=== PATIENT | female | born 2000 | race Caucasian/White ===

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

== ENCOUNTER 2019-04-09 14:05 | Emergency (ER) | payer SELFPAY ==
[2019-04-09 14:21] VITALS: BP 116/73; PULSE 95
--- NOTE | 2019-04-09 14:21 | EDM.PDOC ---
ED HPI GENERAL MEDICAL PROBLEM - General Chief Complaint: Genitourinary Problem Stated Complaint: INFECTION Time Seen by Provider: 04/09/19 14:17 Source of Information: Reports: Patient History Limitations: Reports: No Limitations - History of Present Illness INITIAL COMMENTS - FREE TEXT/NARRATIVE: History of present illness: []Patient started having right-sided flank pain in her urine yesterday. Today she has pain and both flanks as well as frequency but no dysuria. She denies any fevers, chills, nausea or vomiting and is unsure if she is . Review of systems: As per history of present illness and below otherwise all systems reviewed and negative. Past medical history: As per history of present illness and as reviewed below otherwise noncontributory. Surgical history: As per history of present illness and as reviewed below otherwise noncontributory. Social history: No reported history of drug or alcohol abuse. Family history: As per history of present illness and as reviewed below otherwise noncontributory. Physical exam: General: Well developed, well nourished in NAD HEENT: Atraumatic, normocephalic, pupils reactive, negative for conjunctival pallor or scleral icterus, mucous membranes moist, throat clear, neck supple, nontender, trachea midline. Lungs: Clear to auscultation, breath sounds equal bilaterally, chest nontender. Heart: S1S2, regular, negative for clicks, rubs, or JVD. Abdomen: NABS, Soft, nondistended, nontender, no rebound or guarding. Negative for masses or hepatosplenomegaly. Negative for costovertebral tenderness. Pelvis: Stable nontender. Genitourinary: Deferred. Rectal: Deferred. Extremities: Atraumatic, negative for cords or calf pain. Neurovascular unremarkable. Neuro: Awake, alert, oriented. Cranial nerves II through XII unremarkable. Cerebellum unremarkable. Motor and sensory unremarkable throughout. Exam nonfocal. Skin:warm and dry Diagnostics: UA, urine hCG Therapeutics: Patient declined pain meds ED Course: stable Impression: uti Prescriptions: bactrim ds Plan: Take meds as directed, follow up with your primary care physician, return to ER if symptoms worsen or change. Definitive disposition and diagnosis as appropriate pending reevaluation and review of above. Pelvic Pain Score (Numeric/FACES): 3 - Related Data Allergies Allergy/AdvReac Type Severity Reaction Status Date / Time No Known Allergies Allergy Verified 04/09/19 14:18 Home Meds: Home Meds Sulfamethoxazole/Trimethoprim [Bactrim Ds Tablet] 1 each PO BID #14 tablet 04/09 [Rx] Past Medical History - Past Health History Medical/Surgical History: Denies Medical/Surgical History Gastrointestinal History: Reports: Celiac Disease - Infectious Disease History Infectious Disease History: Reports: None Social & Family History - Family History Family Medical History: Noncontributory - Caffeine Use Caffeine Use: Reports: Coffee ED ROS GENERAL - Review of Systems Review Of Systems: See Below ED EXAM, RENAL/ - Physical Exam Exam: See Below Course - Vital Signs Last Recorded V/S: Last Vital Signs Temp 98.5 F 04/09/19 14:18 Pulse 95 04/09/19 14:18 Resp 16 04/09/19 14:18 BP 116/73 04/09/19 14:18 Pulse Ox 96 04/09/19 14:18 - Orders/Labs/Meds Labs: Laboratory Tests 04/09/19 04/09/19 Range/Units 14:23 14:23 Urine Color YELLOW Urine Appearance CLEAR Urine pH 5.5 (5.0-8.0) Ur Specific [place] >= 1.030 (1.001-1.035) Urine Protein NEGATIVE (NEGATIVE) mg/dL Urine Glucose (UA) NEGATIVE (NEGATIVE) mg/dL Urine Ketones NEGATIVE (NEGATIVE) mg/dL Urine Occult Blood SMALL H (NEGATIVE) Urine Nitrite NEGATIVE (NEGATIVE) Urine Bilirubin NEGATIVE (NEGATIVE) Urine Urobilinogen 1.0 (<2.0) EU/dL Ur Leukocyte Esterase NEGATIVE (NEGATIVE) Urine RBC 3-5 (0-2/HPF) Urine WBC 3-5 (0-5/HPF) Ur Epithelial Cells FEW (NONE-FEW) Urine Bacteria FEW (NEGATIVE) Urine HCG, Qual NEGATIVE (NEGATIVE) Departure - Departure Time of Disposition: 14:48 Disposition: Home, Self-Care 01 Condition: Good Clinical Impression: UTI (urinary tract infection) Qualifiers: Urinary tract infection type: site unspecified Hematuria presence: with hematuria Qualified Code(s): N39.0 - Urinary tract infection, site not specified - Discharge Information *PRESCRIPTION DRUG MONITORING PROGRAM REVIEWED*: Not Applicable *COPY OF PRESCRIPTION DRUG MONITORING REPORT IN PATIENT MOHIT: Not Applicable Prescriptions: Sulfamethoxazole/Trimethoprim [Bactrim Ds Tablet] 1 each PO BID #14 tablet Referrals: Alicia Kent NP [Primary Care Provider] - Forms: ED Department Discharge Additional Instructions: The following information is given to patients seen in the emergency department who are being discharged to home. This information is to outline your options for follow-up care. We provide all patients seen in our emergency department with a follow-up referral. The need for follow-up, as well as the timing and circumstances, are variable depending upon the specifics of your emergency department visit. If you don't have a primary care physician on staff, we will provide you with a referral. We always advise you to contact your personal physician following an emergency department visit to inform them of the circumstance of the visit and for follow-up with them and/or the need for any referrals to a consulting specialist. The emergency department will also refer you to a specialist when appropriate. This referral assures that you have the opportunity for follow-up care with a specialist. All of these measure are taken in an effort to provide you with optimal care, which includes your follow-up. Under all circumstances we always encourage you to contact your private physician who remains a resource for coordinating your care. When calling for follow-up care, please make the office aware that this follow-up is from your recent emergency room visit. If for any reason you are refused follow-up, please contact the [facility] Emergency Department at and asked to speak to the emergency department charge nurse. Take meds as directed, follow up with your primary care physician, return to ER if symptoms worsen or change. [facility] [address] [place] [id number]
== END 2019-04-09 14:58 | disposition home or self-care (01) ==
LOC: MW.ED 14:05
DX: N39.0 Urinary tract infection, site not specified (principal); R31.9 Hematuria, unspecified
CPT/HCPCS: 81001; 81025; 99284

== ENCOUNTER 2019-12-12 17:43 | Emergency (ER) | payer OTHER ==
[2019-12-12] MEDS ORDERED: Morphine 15 MG Tab PO ONE (18:13)
[2019-12-12] MEDS ORDERED: Ibuprofen 600 MG Tab PO ONE (18:13)
[2019-12-12] MEDS ORDERED: Acetaminophen 325 MG Tab PO ONE (18:13)
--- NOTE | 2019-12-12 18:17 | EDM.PDOC ---
<Will Edgar - Last Filed: 12/12/19 18:15> ED HPI GENERAL MEDICAL PROBLEM - General Chief Complaint: Lower Extremity Injury/Pain Stated Complaint: POSSIBLE BROKEN TOE Time Seen by Provider: 12/12/19 18:07 Source of Information: Reports: Patient - History of Present Illness INITIAL COMMENTS - FREE TEXT/NARRATIVE: HISTORY AND PHYSICAL: History of present illness: This 19-year-old female with no significant past medical history, has tobacco dependence, and is otherwise healthy he was running away from her parent playing, and then accidentally kicked an object with her right foot. This caused immediate pain and a feeling of a crunch. This resulted in her not being able to ambulate without extreme difficulty and severe pain. She reports emergency department for evaluation for possible fracture. Denies other associated signs or symptoms. No other modifying, aggravating or alleviating factors. Review of systems: A 10-point review of systems, other than pertinent positives and negatives as stated per HPI, is otherwise negative. Past medical history: As per history of present illness and as reviewed below otherwise noncontributory. Surgical history: As per history of present illness and as reviewed below otherwise noncontributory. Social history: No reported history of drug or alcohol abuse. Family history: As per history of present illness and as reviewed below otherwise noncontributory. Physical exam: VITAL SIGNS: Reviewed. GENERAL: Appears to be in acute pain HEAD: No signs of head trauma. EYES: Pupils are equal. Extraocular motions intact. EARS: Hearing grossly intact. MOUTH: Oropharynx is normal. NECK: No adenopathy, no JVD. CHEST: Chest with clear breath sounds bilaterally. No wheezes, rales, or rhonchi. CARDIAC: Regular rate and rhythm. Normal S1 and S2, without murmurs, gallops, or rubs. VASCULAR: Peripheral pulses normal and equal in all extremities. ABDOMEN: Soft, without detectable tenderness. No sign of distention. No rebound or guarding, and no masses palpated. MUSCULOSKELETAL: The right MTP joints are swollen at the second third and fourth junctions. Distal neurovascular function is intact. No open wounds. No pain in the ankle, tib-fib, or proximal fibula. No knee pain. No ligamental laxity. NEUROLOGIC EXAM: Alert and oriented x 3. No focal sensory or motor deficits. Speech normal. Follows commands. PSYCHIATRIC: Mood normal. SKIN: No rash or lesions. Initial Differential Diagnosis & Plan: Extremity trauma: Differential diagnosis includes fracture, dislocation, strain, contusion, tendon or ligamentous injury, compartment syndrome, neurovascular injury, muscle rupture. Doubt compartment syndrome as the compartments are soft. Some swelling and tenderness at the MTP joints. Distal neurovascular function is intact. Oral pain control Plain film radiographs Definitive disposition and diagnosis as appropriate pending reevaluation and review of above. right foot Pain Score (Numeric/FACES): 8 - Related Data Allergies Allergy/AdvReac Type Severity Reaction Status Date / Time No Known Allergies Allergy Verified 12/12/19 18:04 Home Meds: Home Meds Naproxen [Naprosyn] 375 mg PO BID #20 tab 12/12/19 [Rx] Past Medical History - Past Health History Medical/Surgical History: Denies Medical/Surgical History Gastrointestinal History: Reports: Celiac Disease - Infectious Disease History Infectious Disease History: Reports: None Social & Family History - Family History Family Medical History: Noncontributory - Tobacco Use Smoking Status *Q: Current Every Day Smoker Years of Tobacco use: 3 Packs/Tins Daily: 0.2 - Caffeine Use Caffeine Use: Reports: Coffee - Recreational Drug Use Recreational Drug Use: No Departure - Departure Disposition: Home, Self-Care 01 Clinical Impression: Fracture of toe of right foot - Discharge Information Prescriptions: Naproxen [Naprosyn] 375 mg PO BID #20 tab Instructions: Toe Fracture, [id number], Cast or Splint Care, Adult, [id number] Referrals: Alicia Kent PROGRAM REVIEW DIRECTOR [Primary Care Provider] - Forms: ED Department Discharge Sepsis Event Note (ED) - Evaluation Sepsis Screening Result: No Definite Risk <Minh Mathis - Last Filed: 12/12/19 20:17> ED HPI GENERAL MEDICAL PROBLEM - History of Present Illness INITIAL COMMENTS - FREE TEXT/NARRATIVE: After walking boot and crutches, she improved clinically and is stable for discharge. I advised the patient to return to the ER for reevaluation if symptoms worsened, and to follow up with their ortho within 1 week. Onset: Today Review of Systems - Review of Systems Review Of Systems: Comprehensive ROS is negative, except as noted in HPI. ED EXAM, GENERAL - Physical Exam Exam: See Below (see dictation) ED TRAUMA EXTREMITY PROCEDURES - Splinting Right Lower Extremity Pre-Procedure NV Status: Normal Post-Procedure NV Status: Normal Splint Material: Boot Orthotic Applied & Form Fitted By: Nurse Provider Post-Splint Application NV Check: NV Status Normal, Good Position Complications: No Course - Vital Signs Last Recorded V/S: Last Vital Signs Temp 97.3 F 12/12/19 20:09 Pulse 74 12/12/19 20:09 Resp 18 12/12/19 20:09 BP 109/69 12/12/19 20:09 Pulse Ox 97 12/12/19 20:09 - Orders/Labs/Meds Orders: Active Orders 24 hr Category Date Time Status DME for Discharge [COMM] Stat Oth 12/12/19 19:56 Ordered Meds: Medications Discontinued Medications Generic Name Dose Route Start Last Admin Trade Name Jonathan PRN Reason Stop Dose Admin Acetaminophen 975 mg 12/12/19 18:13 12/12/19 19:06 Tylenol PO 12/12/19 18:14 975 mg NOW ONE Administration Ibuprofen 600 mg 12/12/19 18:13 12/12/19 19:07 Motrin PO 12/12/19 18:14 600 mg ONETIME ONE Administration Morphine Sulfate 15 mg 12/12/19 18:13 12/12/19 19:58 Morphine PO 12/12/19 18:14 Not Given ONETIME ONE - Re-Assessments/Exams Free Text/Narrative Re-Assessment/Exam: 12/12/19 20:12 After walking boot and crutches, she is stable for discharge. I performed a repe at examination and the patient has not demonstrated any new abnormal findings. Patient exhibits normal vital signs and has exhibited a stable gait with crutches. I advised the patient to return to the ER for reevaluation if symptoms worsened, and to follow up with orthopedic within 1 week Departure - Departure Time of Disposition: 20:13 Condition: Good - Discharge Information *PRESCRIPTION DRUG MONITORING PROGRAM REVIEWED*: Not Applicable *COPY OF PRESCRIPTION DRUG MONITORING REPORT IN PATIENT MOHIT: Not Applicable Sepsis Event Note (ED) - Focused Exam Vital Signs: Vital Signs Temp Pulse Resp BP Pulse Ox 12/12/19 20:09 97.3 F 74 18 109/69 97 12/12/19 18:02 97.3 F 107 H 18 130/74 94 L - My Orders Last 24 Hours: My Active Orders 12/12/19 19:56 DME for Discharge [COMM] Stat - Assessment/Plan Last 24 Hours: My Active Orders 12/12/19 19:56 DME for Discharge [COMM] Stat
--- NOTE | 2019-12-12 18:47 | CR ---
Right foot: 3 views of the right foot were obtained. Comparison: No prior foot exam is available. Joint spaces are preserved. Equivocal lucent line within the base of the distal phalanx of the 1st toe is seen. Difficult to exclude nondisplaced fracture. Please correlate if patient is symptomatic in this area. 2nd lucent line noted within the distal proximal phalanx of the 3rd toe. Difficult to exclude nondisplaced fracture of this area. No additional fracture or other bony abnormality is seen. Impression: 1. Equivocal nondisplaced fracture as noted above. If patient is not symptomatic in this area this may be artifact. 2. Similar finding is noted within the distal aspect of the proximal phalanx of the 2nd toe possibly due to additional nondisplaced fracture. Again, please correlate. Diagnostic code #3 This report was dictated in MDT
[2019-12-12 20:10] VITALS: BP 109/69; PULSE 74
== END 2019-12-12 20:30 | disposition home or self-care (01) ==
LOC: MW.ED 17:43
DX: S92.514A Nondisplaced fracture of proximal phalanx of right lesser toe(s), initial encounter for closed fracture (principal); F17.210 Nicotine dependence, cigarettes, uncomplicated; W22.8XXA Striking against or struck by other objects, initial encounter; Y93.02 Activity, running
CPT/HCPCS: 73630; 99283; A9270

== ENCOUNTER 2020-11-16 13:25 | Emergency (ER) | payer BC, OTHER ==
[2020-11-16 15:07] VITALS: BP 100/67
[2020-11-16] MEDS ORDERED: Ibuprofen 600 MG Tab PO ONE (15:58)
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
[2020-11-16 16:38] VITALS: PULSE 80
== END 2020-11-16 16:39 | disposition home or self-care (01) ==
LOC: MW.ED 13:25
DX: F12.10 Cannabis abuse, uncomplicated (principal); F10.129 Alcohol abuse with intoxication, unspecified; Y90.2 Blood alcohol level of 40-59 mg/100 ml
CPT/HCPCS: 36415; 80305; 80307; 99284; A9270; 99283

== ENCOUNTER 2023-04-23 19:01 | Emergency (ER) | payer BC ==
[2023-04-23] MEDS ORDERED: Sodium Chloride 0.9% 2.5 ML Syringe FLUSH PRN (19:25)
[2023-04-23] MEDS ORDERED: Sodium Chloride 0.9% 10 ML Syringe FLUSH PRN (19:25)
[2023-04-23] MEDS ORDERED: Sodium Chloride 0.9% 1,000 ML IV ONE (19:25)
[2023-04-23 19:52] LABS: BASOPHILS ABSOLUTE AUTO 0.05 K/uL (0.00-0.20); BASOPHILS PERCENT AUTO 0.6 % (0.0-1.0); EOSINOPHILS ABSOLUTE AUTO 0.04 K/uL (0.00-0.45); EOSINOPHILS PERCENT AUTO 0.5 % (0.0-6.0); HEMATOCRIT 42.2 % (37.0-47.0); IMMATURE GRAN ABSOLUTE AUTO 0.02 K/uL (0.00-0.05); IMMATURE GRAN PERCENT AUTO 0.2 % (0.0-0.4); LYMPHOCYTES ABSOLUTE AUTO 1.04 K/uL (1.00-4.80); LYMPHOCYTES PERCENT AUTO 12.7 % (24.0-44.0); MEAN CORPUSCULAR HGB CONC 35.5 g/dL (32.0-36.0); MEAN PLATELET VOLUME 9.4 fL (9.4-12.3); MONOCYTES ABSOLUTE AUTO 0.81 K/uL (0.00-0.80); MONOCYTES PERCENT AUTO 9.9 % (0.0-8.0); NEUTROPHILS ABSOLUTE AUTO 6.26 K/uL (1.80-7.70); NEUTROPHILS PERCENT AUTO 76.1 % (41.0-71.0); PLATELET COUNT,PLT 209 K/uL (150-400); RED BLOOD CELL COUNT 4.54 M/uL (4.10-5.30); WHITE BLOOD CELL COUNT,WBC 8.22 K/uL (3.9-11.3)
[2023-04-23 19:58] LABS: COLOR,URINE YELLOW; GLUCOSE,URINE NEGATIVE (NEGATIVE); KETONES,URINE 40 mg/dL (NEGATIVE); LEUKOCYTE ESTERASE,URINE MODERATE (NEGATIVE); NITRITE,URINE NEGATIVE (NEGATIVE); OCCULT BLOOD,URINE TRACE-INTACT (NEGATIVE); PROTEIN,URINE NEGATIVE (NEGATIVE)
[2023-04-23 20:16] LABS: APPEARANCE,URINE SLT CLOUDY; BACTERIA,URINE FEW (NEGATIVE); BILIRUBIN,URINE SMALL (NEGATIVE); EPITHELIAL CELLS,URINE RARE (NONE-FEW); MUCUS,URINE OCCASIONAL (NONE-MOD); RBC,URINE 0-3 (0-2/HPF)
[2023-04-23 20:20] LABS: A/G RATIO 1.2 (0.9-1.6); ALANINE AMINOTRANSFERASE,ALT 22 IU/L (14-63); ALBUMIN 3.9 g/dL (3.4-5.0); ALKALINE PHOSPHATASE 66 U/L (46-116); ASPARTATE AMNIOTRANSFERASE,AST 17 IU/L (15-37); BILIRUBIN TOTAL 1.3 mg/dL (0.2-1.0); BLOOD UREA NITROGEN,BUN 7 mg/dL (7.0-18.0); CALCIUM 8.6 mg/dL (8.5-10.1); CARBON DIOXIDE,CO2 26.4 mmol/L (21.0-32.0); CHLORIDE,CL 101 mmol/L (98-107); CREATININE 0.8 mg/dL (0.6-1.0); EST CRCL DRUG DOSING (CG) 100.14 mL/min; GLUCOSE RANDOM 147 mg/dL (74-106); POTASSIUM,K 3.4 mmol/L (3.5-5.1); PROTEIN TOTAL,TP 7.2 g/dL (6.4-8.2); SODIUM,NA 137 mmol/L (136-145)
[2023-04-23 20:21] LABS: ESTIMATED GFR 106 mL/min (>60)
[2023-04-23 21:35] LABS: CANDIDA DNA PROBE NEGATIVE (NEGATIVE); GARDNERELLA DNA PROBE NEGATIVE (NEGATIVE); TRICHOMONAS DNA PROBE NEGATIVE (NEGATIVE)
[2023-04-23 21:59] LABS: C. TRACHOMATIS BY PCR NOT DETECTED; N. GONORRHOEAE BY PCR NOT DETECTED
[2023-04-23 22:30] VITALS: BP 108/66; PULSE 76
== END 2023-04-23 22:30 | disposition home or self-care (01) ==
LOC: MW.ED 19:01
DX: N39.0 Urinary tract infection, site not specified (principal); R55 Syncope and collapse; R10.2 Pelvic and perineal pain
CPT/HCPCS: 80053; 81001; 84484; 84703; 85025; 85379; 87480; 87491; 87510; 87529; 87591; 87660; 93005; 96360; 99284; J3490; J7030; 93010; 99283

== ENCOUNTER 2023-04-25 18:02 | Emergency (ER) | payer BC ==
[2023-04-25 19:39] LABS: CORONAVIRUS COVID-19 NAA NEGATIVE (NEGATIVE); INFLUENZA A NAA NEGATIVE (NEGATIVE); INFLUENZA B NAA NEGATIVE (NEGATIVE)
[2023-04-25] MEDS ORDERED: Dexamethasone 10 MG/ML SDV PO ONE (19:46)
[2023-04-25 20:01] VITALS: BP 119/68; PULSE 88
== END 2023-04-25 20:00 | disposition home or self-care (01) ==
LOC: MW.ED 18:02
DX: J02.9 Acute pharyngitis, unspecified (principal); Z20.822 Contact with and (suspected) exposure to COVID-19
CPT/HCPCS: 0240U; 87651; 99283; J8540